=== PATIENT | female | born 1980 | race Caucasian/White ===

== ENCOUNTER 2017-09-28 15:47 | Emergency (ER) | payer MEDICAID ==
[~2017-09-28] VITALS: Ht 177.8 cm; Wt 100.0 kg
[2017-09-28] MEDS ORDERED: hydrALAZINE 20mg/ml inj. IV ONE (16:35)
[2017-09-28 16:59] LABS: BASOPHILS % (AUTO) 0.2 % (0-1); EOSINOPHILS # (AUTO) 0.1 X10'3 (0-0.9); EOSINOPHILS % (AUTO) 1.2 % (0-6); HEMATOCRIT 47.1 % (35.0-45.0); LYMPHOCYTES # (AUTO) 1.9 X10'3 (1.1-4.8); LYMPHOCYTES % (AUTO) 21.4 % (21-51); MEAN CORPUSCULAR HEMOGLOBIN 31.6 PG (27.0-31.0); MEAN CORPUSCULAR VOLUME 92.9 FL (78-98); MEAN PLATELET VOLUME 10.2 FL (7.4-10.4); MONOCYTES # (AUTO) 0.6 X10'3 (0-0.9); MONOCYTES % (AUTO) 7.3 % (2-12); NEUTROPHILS # (AUTO) 6.2 X10'3 (1.8-7.7); NEUTROPHILS % (AUTO) 69.9 % (42-75); PLATELET COUNT 228 X10'3 (140-440); RED BLOOD COUNT 5.07 X10'6 (4.20-5.60); RED CELL DISTRIBUTION WIDTH 15.4 % (11.5-14.5); WHITE BLOOD COUNT 8.9 X10'3 (4.5-11.0)
[2017-09-28 17:20] LABS: ALANINE AMINOTRANSFERASE 39 U/L (12-78); ALBUMIN/GLOBULIN RATIO 1.1 (1.1-1.5); ALKALINE PHOSPHATASE 103 IU/L (46-116); ANION GAP 12 (8-16); ASPARTATE AMINO TRANSFERASE 46 U/L (10-37); BILIRUBIN,TOTAL 0.8 MG/DL (0.1-1.0); BLOOD UREA NITROGEN 12 MG/DL (7-18); BUN/CREATININE RATIO 14.5 (6.6-38.0); CALCIUM 9.3 MG/DL (8.5-10.1); CHLORIDE 100 MMOL/L (99-107); CREATININE 0.83 MG/DL (0.40-0.90); GLUCOSE 117 MG/DL (70-104); MAGNESIUM 1.7 MG/DL (1.5-2.4); SODIUM 138 MMOL/L (135-145); TOTAL CARBON DIOXIDE 26.1 MMOL/L (24-32); TOTAL PROTEIN 7.7 G/DL (6.4-8.2); eGFR 77 ML/MIN
[2017-09-28] MEDS ORDERED: potassium Cl 20 mEq SR tablet PO ONE (17:30)
[2017-09-28] MEDS ORDERED: cloNIDine 0.1 mg tablet PO ONE (17:55)
[2017-09-28 18:39] VITALS: BP 163/105
== END 2017-09-28 18:40 | disposition home or self-care (01) ==
LOC: ER 15:48
DX: I10 Essential (primary) hypertension (principal); E87.6 Hypokalemia; R20.2 Paresthesia of skin; F17.200 Nicotine dependence, unspecified, uncomplicated; Z88.2 Allergy status to sulfonamides; Z98.890 Other specified postprocedural states
CPT/HCPCS: 36415; 71045; 80053; 83735; 84484; 85025; 93005; 96374; 99285; J0360

== ENCOUNTER 2021-03-01 18:21 | Emergency (ER) | payer MEDICAID ==
[~2021-03-01] VITALS: Ht 177.8 cm; Wt 113.6 kg
[~2021-03-01 18:21] MED LIST: AMLO5TAB4 PO; METO-384 PO
[2021-03-01 18:29] VITALS: BP_DIAS 116
[2021-03-01] MEDS ORDERED: amLODIPine 5mg tablet PO ONE (18:40)
[2021-03-01] MEDS ORDERED: metoprolol succinate 25mg (24-HOUR) SR. Tablet PO STA (18:40)
[2021-03-01 18:53] VITALS: BP_SYST 166
== END 2021-03-01 19:09 | disposition home or self-care (01) ==
LOC: ER 18:22
DX: I10 Essential (primary) hypertension (principal); R51.9 Headache, unspecified; Z98.890 Other specified postprocedural states; Z72.89 Other problems related to lifestyle; Z88.2 Allergy status to sulfonamides; Z79.899 Other long term (current) drug therapy
CPT/HCPCS: 99283

== ENCOUNTER 2022-01-02 18:16 | Emergency (ER) | payer MEDICAID ==
[~2022-01-02] VITALS: Ht 177.8 cm; Wt 113.6 kg
[2022-01-02 20:41] VITALS: BP 141/107
[2022-01-02] MEDS ORDERED: meclizine 12.5mg tablet PO ONE (22:10)
[2022-01-02] MEDS ORDERED: MECL-159 PO (22:14)
== END 2022-01-02 23:01 | disposition home or self-care (01) ==
LOC: ER 18:16
DX: H81.13 Benign paroxysmal vertigo, bilateral (principal); I10 Essential (primary) hypertension; F17.200 Nicotine dependence, unspecified, uncomplicated; Z98.890 Other specified postprocedural states; Z88.2 Allergy status to sulfonamides; Z79.899 Other long term (current) drug therapy
CPT/HCPCS: 99282; J8597

== ENCOUNTER 2022-08-21 17:35 | Emergency (ER) | payer MEDICAID ==
[~2022-08-21] VITALS: Ht 177.8 cm; Wt 110.4 kg
[~2022-08-21 17:35] MED LIST changes: +MECL-159 PO
[2022-08-21 18:18] VITALS: BP 161/107
[2022-08-21 19:29] LABS: BASOPHILS % (AUTO) 0.5 % (0-1); EOSINOPHILS # (AUTO) 0.1 X10'3 (0-0.9); HEMATOCRIT 37.3 % (35.0-45.0); HEMOGLOBIN 11.5 g/dl (12.0-16.0); LYMPHOCYTES # (AUTO) 2.1 X10'3 (1.1-4.8); LYMPHOCYTES % (AUTO) 34.9 % (21-51); MEAN CORPUSCULAR HEMOGLOBIN 23.1 PG (27.0-31.0); MEAN CORPUSCULAR HGB CONC 30.8 g/dL (33.0-36.5); MEAN CORPUSCULAR VOLUME 74.8 FL (78-98); MEAN PLATELET VOLUME 8.4 FL (7.4-10.4); MONOCYTES # (AUTO) 0.6 X10'3 (0-0.9); MONOCYTES % (AUTO) 9.6 % (2-12); NEUTROPHILS # (AUTO) 3.2 X10'3 (1.8-7.7); PLATELET COUNT 256 X10'3 (140-440); RED BLOOD COUNT 4.98 X10'6 (4.20-5.60); RED CELL DISTRIBUTION WIDTH 18.7 % (11.5-14.5); WHITE BLOOD COUNT 5.9 X10'3 (4.5-11.0)
[2022-08-21 19:44] LABS: ALANINE AMINOTRANSFERASE 12 U/L (12-78); ALBUMIN 3.7 G/DL (3.4-5.0); ALBUMIN/GLOBULIN RATIO 0.9 (1.1-1.5); ALKALINE PHOSPHATASE 83 IU/L (46-116); ANION GAP 10 (8-16); ASPARTATE AMINO TRANSFERASE 19 U/L (10-37); BILIRUBIN,TOTAL 0.6 MG/DL (0.1-1.0); BLOOD UREA NITROGEN 10 MG/DL (7-18); BUN/CREATININE RATIO 12.5 (10.0-20.0); CALCIUM 9.3 MG/DL (8.5-10.1); CHLORIDE 101 MMOL/L (99-107); GLUCOSE 101 MG/DL (70-104); POTASSIUM 3.3 MMOL/L (3.5-5.1); SODIUM 139 MMOL/L (135-145); TOTAL CARBON DIOXIDE 27.7 MMOL/L (24-32); TOTAL PROTEIN 7.7 G/DL (6.4-8.2); eGFR 78 ML/MIN
[2022-08-21] MEDS ORDERED: POTA10CA45 PO (20:22)
== END 2022-08-21 20:32 | disposition home or self-care (01) ==
LOC: ER 17:35
DX: E87.6 Hypokalemia (principal); R07.89 Other chest pain; I10 Essential (primary) hypertension; Z88.2 Allergy status to sulfonamides
CPT/HCPCS: 36415; 71045; 80053; 83880; 84484; 85025; 93005; 99285

== ENCOUNTER 2022-12-13 15:25 | Emergency (ER) | payer MEDICAID ==
[~2022-12-13] VITALS: Ht 179.1 cm; Wt 111.4 kg
[2022-12-13 15:31] VITALS: BP 150/100
--- NOTE | 2022-12-13 16:15 | NUR ---
PT PRESENTS TO THE ER FOR MECHANICAL FALL. PT STATES " MY KNEE JUST GIVES OUT SOMETIMES" PT DENIES HEADSTRIKE.
[2022-12-13] MEDS ORDERED: ondansetron 4mg rapidly disintigrating tab PO ONE (16:45)
[2022-12-13] MEDS ORDERED: HYDROcodone/acetaminophen 5mg/325mg tablet PO ONE (16:45)
[2022-12-13] MEDS ORDERED: CYCL-1 PO (18:00)
[2022-12-13] MEDS ORDERED: HYDR-3972 PO (18:00)
== END 2022-12-13 18:05 | disposition home or self-care (01) ==
LOC: ER 15:26
DX: S20.221A Contusion of right back wall of thorax, initial encounter (principal); I10 Essential (primary) hypertension; Z88.0 Allergy status to penicillin; Z88.2 Allergy status to sulfonamides; Z91.040 Latex allergy status; W19.XXXA Unspecified fall, initial encounter; Y93.89 Activity, other specified; Y92.89 Other specified places as the place of occurrence of the external cause; Y99.8 Other external cause status
CPT/HCPCS: 71045; 72070; 72100; 99284

== ENCOUNTER 2023-07-18 16:27 | Emergency (ER) | payer MEDICAID ==
[~2023-07-18] VITALS: Ht 177.8 cm; Wt 107.5 kg
[~2023-07-18 16:27] MED LIST changes: +CYCL-1 PO; -MECL-159 PO; +MECL-302 PO
[2023-07-18 16:51] LABS: BASOPHILS % (AUTO) 0.5 % (0-1); EOSINOPHILS # (AUTO) 0.1 X10'3 (0-0.9); EOSINOPHILS % (AUTO) 0.9 % (0-6); HEMOGLOBIN 16.9 g/dl (12.0-16.0); LYMPHOCYTES # (AUTO) 1.9 X10'3 (1.1-4.8); LYMPHOCYTES % (AUTO) 30.5 % (21-51); MEAN CORPUSCULAR HEMOGLOBIN 45.5 PG (27.0-31.0); MEAN CORPUSCULAR HGB CONC 35.3 g/dL (33.0-36.5); MEAN PLATELET VOLUME 8.6 FL (7.4-10.4); MONOCYTES # (AUTO) 0.4 X10'3 (0-0.9); MONOCYTES % (AUTO) 6.8 % (2-12); NEUTROPHILS # (AUTO) 3.9 X10'3 (1.8-7.7); NEUTROPHILS % (AUTO) 61.3 % (42-75); PLATELET COUNT 169 X10'3 (140-440); RED BLOOD COUNT 3.72 X10'6 (4.20-5.60); RED CELL DISTRIBUTION WIDTH 13.6 % (11.5-14.5); WHITE BLOOD COUNT 6.3 X10'3 (4.5-11.0)
[2023-07-18 16:58] VITALS: BP 148/108; PULSE 74; RESP 18; TEMP 98.4; O2SAT 98
[2023-07-18 17:34] LABS: NUCLEATED RED BLOOD CELLS 1 /100WBC (0-0); TOTAL CELLS COUNTED 100
[2023-07-18 17:38] LABS: HYPERSEGMENTED NEUTROPHILS 1+; PLATELET ESTIMATE NORMAL; TOXIC GRANULATION 1+
[2023-07-18 17:39] LABS: STOMATOCYTES 3+; TOXIC VACUOLATION FEW
[2023-07-18 18:12] LABS: ALANINE AMINOTRANSFERASE 27 U/L (12-78); ALBUMIN 3.8 G/DL (3.4-5.0); ALKALINE PHOSPHATASE 105 IU/L (46-116); ANION GAP 13 (8-16); ASPARTATE AMINO TRANSFERASE 75 U/L (10-37); BILIRUBIN,TOTAL 1.4 MG/DL (0.1-1.0); BLOOD UREA NITROGEN 8 MG/DL (7-18); BUN/CREATININE RATIO 10.7 (10.0-20.0); CALCIUM 9.6 MG/DL (8.5-10.1); CHLORIDE 104 MMOL/L (99-107); CREATININE 0.75 MG/DL (0.40-0.90); GLUCOSE 109 MG/DL (70-104); POTASSIUM 3.9 MMOL/L (3.5-5.1); PRO BRAIN NATRIURETIC PEPTIDE 267 PG/ML (0-125); SODIUM 141 MMOL/L (135-145); TOTAL CARBON DIOXIDE 23.6 MMOL/L (24-32); TOTAL PROTEIN 7.6 G/DL (6.4-8.2); eCRCL 104 ML/MIN; eGFR 84 ML/MIN
[2023-07-18 19:38] LABS: HCG SERUM QL NEGATIVE
[2023-07-18] MEDS ORDERED: ONDA4TAB12 PO (22:25)
[2023-07-18] MEDS ORDERED: MECL-226 PO (22:25)
[2023-07-18] MEDS ORDERED: AMLO5TAB16 PO (22:27)
[2023-07-18] MEDS: meclizine 12.5mg tablet PO ONE (22:46)
[2023-07-18] MEDS: ondansetron 4mg rapidly disintigrating tab PO ONE (22:47)
== END 2023-07-18 22:49 | disposition home or self-care (01) ==
LOC: ER 16:28
DX: R07.9 Chest pain, unspecified (principal); H81.13 Benign paroxysmal vertigo, bilateral
CPT/HCPCS: 36415; 70450; 71045; 80053; 83880; 84484; 84703; 85007; 85025; 93005; 99285; J8597